=== PATIENT | female | born 1945 | race Caucasian/White ===

== ENCOUNTER 2016-12-29 02:29 | Emergency (ER) | payer MEDICARE ==
[2016-12-29] MEDS ORDERED: Ketorolac Tromethamine 30 MG/ML VIAL ONE (02:50)
[2016-12-29] MEDS ORDERED: HYDROcodone/Acetaminophen 5/325 mg Tablet ONE (03:37)
[2016-12-29] MEDS ORDERED: Cyclobenzaprine 10 MG TAB ONE (03:37)
--- NOTE | 2016-12-29 11:39 | RAD ---
LEFT HIP 2 VIEWS: HISTORY: Hip pain. FINDINGS: There are some mild arthritic changes of the hip joint. Some minimal spur formation. No significan t joint space narrowing. No signs of any acute injury. IMPRESSION: Minimal arthritic changes of the hip. POS: NAYA
--- NOTE | 2017-01-01 09:13 | RAD ---
FRONTAL LATERAL IMAGING OF THE LEFT FEMUR: Date: 12-29-16 History: Chronic pain. 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 There is no fracture or evidence of di slocation seen. IMPRESSION: No acute osseous abnormality. POS: NAYA
== END 2016-12-29 03:53 | disposition home or self-care (01) ==
LOC: NAV ERS 02:29
DX: S76.312A Strain of muscle, fascia and tendon of the posterior muscle group at thigh level, left thigh, initial encounter (principal); I10 Essential (primary) hypertension; F17.210 Nicotine dependence, cigarettes, uncomplicated; X58.XXXA Exposure to other specified factors, initial encounter
CPT/HCPCS: 96372; J1885

== ENCOUNTER 2021-04-26 09:42 | Outpatient (CLI) | payer MEDICARE | END 2021-04-26 09:43 | disposition home or self-care (01) | LOC: NAV RAD 09:42 | PROVIDERS: ATTEND Nurse Practitioner Adult Health | DX: M25.552 Pain in left hip (principal); M16.12 Unilateral primary osteoarthritis, left hip; M85.88 Other specified disorders of bone density and structure, other site ==

== ENCOUNTER 2023-11-26 15:11 | Emergency (ER) | payer OTHER ==
[2023-11-26] MEDS ORDERED: Morphine 4 MG/ML VIAL ONE (15:59)
[2023-11-26] MEDS ORDERED: Morphine 2 MG/ML VIAL ONE (16:01)
[2023-11-26] MEDS ORDERED: Bacitracin 1 PK ONE (17:03)
[2023-11-26] MEDS ORDERED: Boostrix 0.5 ML (Tdap) VIAL (>/=7 yrs of age) ONE (17:03)
== END 2023-11-26 17:25 | disposition home or self-care (01) ==
LOC: NAV ERS 15:11
DX: S30.0XXA Contusion of lower back and pelvis, initial encounter (principal); S50.312A Abrasion of left elbow, initial encounter; S39.94XA Unspecified injury of external genitals, initial encounter; I10 Essential (primary) hypertension; F17.210 Nicotine dependence, cigarettes, uncomplicated; W01.0XXA Fall on same level from slipping, tripping and stumbling without subsequent striking against object, initial encounter
CPT/HCPCS: 72125; 72170; 90471; 90715; 96374; J2270; J2272

== ENCOUNTER 2025-10-05 14:31 | Emergency (ER) | payer OTHER | END 2025-10-05 17:10 | disposition home or self-care (01) | LOC: NAV ERS 14:31 | DX: S20.211A Contusion of right front wall of thorax, initial encounter (principal); I10 Essential (primary) hypertension; I48.91 Unspecified atrial fibrillation; F17.210 Nicotine dependence, cigarettes, uncomplicated; Z79.899 Other long term (current) drug therapy; W01.10XA Fall on same level from slipping, tripping and stumbling with subsequent striking against unspecified object, initial encounter; Y93.01 Activity, walking, marching and hiking | CPT/HCPCS: 99283 ==